=== PATIENT | female | born 1965 | race Two or more races ===

== ENCOUNTER → 2025-01-23 | Outpatient (CLI) | payer OTHER, SELFPAY ==
--- NOTE | 2025-01-23 10:30 | XR_ITS ---
Examination: MRI brain without intravenous contrast. Date and time of exam: January 23, 2025 1043 hours Comparison June 09, 2017 INDICATIONS: Increasing memory loss decrease in hearing lethargy 3 years Technique: Multiple axial and sagittal images of the brain obtained. Siemens high-resolution 1.5 Tammy short bore scanners utilized. Sagittal sections, T1-weighted, TR 500, TE 14, are performed. Axial sections proton-density and T2-weighted have been obtained. Inversion recovery axial images, TR 9, 260, TE 111, TI 2500. Diffusion weighted images, axial sections, TR 4800, TE 128, B value 1000 Axial sections, ADC map, TR 4800, TE 128 Findings: Enlargement of the sella turcica is not present. The optic chiasm and infundibular are not remarkable. Prepontine and interpeduncular cisterns are not enlarged. There is no localized enlargement of the medulla or johnson. Fourth ventricle and cerebellar tonsils appear normal in position. No subacute area of hemorrhage density is seen. Mass in the cerebellopontine angle region is not evident. Globes symmetrical. Orbital musculature including medial lateral rectus muscles do not exhibit abnormality. Diffusion-weighted images demonstrate no focus of restricted diffusion. Increased white matter signal evident, single punctate focus increased signal in the left parietal white matter image 15 Mass effect upon the ventricular system is not identified. Impression: Negative for acute hemorrhage mass effect or midline shift Single punctate focus increased signal in the left parietal white matter, differential would include demyelinating disease
== END | disposition home or self-care (01) ==
LOC: SMRI 10:14
PROVIDERS: PCP Family Medicine; Referring Provider Psychiatry & Neurology Neurology; Visit Provider Psychiatry & Neurology Neurology
DX: R90.82 White matter disease, unspecified (principal)
CPT/HCPCS: 70551

== ENCOUNTER → 2025-08-28 | Outpatient (CLI) | payer BC, SELFPAY ==
--- NOTE | 2025-08-28 10:53 | XR_ITS ---
Examination: Fingers, right hand third digit 3 views Technique: AP, oblique, lateral views right hand third digit 3 views. Exam date and time: August 28, 2025, 1108 hours INDICATIONS: Patient fell 4 days ago with injury to the hand with third digit pain. FINDINGS: Acute fracture dorsal base distal phalanx, intra-articular, 3 mm fracture fragment which is displaced on the lateral view IMPRESSION: Acute displaced chip fracture dorsal base distal phalanx third digit
--- NOTE | 2025-08-28 10:53 | XR_ITS ---
Examination: Knee, left, 3 views Technique: Knee AP, lateral, oblique 3 views Date and time of exam: August 28, 2025, 1118 hours INDICATIONS: Left knee pain after falling 4 days ago. FINDINGS: No fracture or dislocation Moderate knee effusion IMPRESSION: No fracture or dislocation
== END | disposition home or self-care (01) ==
PROVIDERS: PCP Family Medicine; Referring Provider Family Medicine; Visit Provider Family Medicine
DX: M23.8X2 Other internal derangements of left knee (principal); S62.632A Displaced fracture of distal phalanx of right middle finger, initial encounter for closed fracture; W19.XXXA Unspecified fall, initial encounter
CPT/HCPCS: 73140; 73562